=== PATIENT | female | born 1985 | race Caucasian/White ===

== ENCOUNTER 2016-10-02 10:25 | Emergency (ER) | payer OTHER ==
[~2016-10-02] VITALS: Ht 165.1 cm; Wt 115.8 kg
[~2016-10-02 10:25] MED LIST: AMOXICILLIN500 MG PO; CHILD IBUP100 MG/5 M PO; FLEXERIL10 MG PO; MOTRIN IB200 MG PO; MOTRIN600 MG PO; NAPROSYN500 MG PO; NOHOMEMEDS; VICODIN 5-3001 EACH PO; ZOFRAN ODT4 MG PO
[2016-10-02] MEDS ORDERED: PREDNISONE50 MG PO (13:42)
[2016-10-02 13:54] VITALS: BP 144/95
== END 2016-10-02 13:55 | disposition home or self-care (01) ==
LOC: EME 10:25
DX: M54.12 Radiculopathy, cervical region (principal)
CPT/HCPCS: 99281; 99284